=== PATIENT | female | born 1965 | race Caucasian/White ===

== ENCOUNTER → 2023-07-10 16:03 | Outpatient (REF) | payer BC, SELFPAY | LOC: WDC 16:03 | PROVIDERS: ATTENDING PHYSICIAN Obstetrics & Gynecology; FAMILY PHYSICIAN Physician Assistant Medical | DX: Z12.31 Encounter for screening mammogram for malignant neoplasm of breast (principal) | CPT/HCPCS: 77063; 77067 ==

== ENCOUNTER → 2024-01-06 07:23 | Outpatient (REF) | payer BC, SELFPAY ==
[2024-01-06 08:14] LABS: % Basophils 0.9 % (0-2); % Eosinophils 11.1 % (0-6); % Immature Granulocytes 0.2 % (0-0.5); % Monocytes 5.8 % (1.7-9.3); Absolute Basophils 0.1 10^3/uL (0-0.2); Absolute Eosinophils 0.7 10^3/uL (0-0.7); Absolute Lymphocytes 2.5 10^3/uL (1.2-3.4); Absolute Monocytes 0.4 10^3/uL (0.1-0.6); Absolute Neutrophils 2.9 10^3/uL (1.4-6.5); Hematocrit 39.4 % (37.0-47.0); Hemoglobin 13.4 g/dL (12.0-16.0); Mean Corpuscular Hgb 31.5 pg (27.0-31.0); Mean Corpuscular Volume 92.7 fL (81.0-99.0); Nucleated Red Blood Cells % 0 %; Platelet Count 179 10^3/uL (130-400); Red Blood Cell Count 4.25 10^6/uL (4.20-5.40); Red Cell Dist. Width 12.7 % (11.5-14.5); White Blood Cell Count 6.5 10^3/uL (4.8-10.8)
[2024-01-06 09:06] LABS: TSH 4.27 uIU/ml (0.47-4.68)
[2024-01-06 09:30] LABS: ALT (SGPT) 50 U/L (0-35); AST (SGOT) 47 U/L (14-36); Albumin 4.6 g/dl (3.5-5.0); Alkaline Phosphatase 69 U/L (38-126); Blood Urea Nitrogen 15 mg/dl (7-17); Calcium 9.8 mg/dl (8.4-10.2); Carbon Dioxide 21 mmol/L (22-30); Chloride 105 mmol/L (98-107); Glucose 84 mg/dl (70-99); HDL Cholesterol 90 mg/dl; LDL Cholesterol, Calculated 98 mg/dl; Potassium 4.7 mmol/L (3.5-5.1); Sodium 142 mmol/L (135-145); Total Bilirubin 1.2 mg/dl (0.2-1.3); Total Cholesterol 205 mg/dl (50-199); Total Protein 7.2 g/dl (6.3-8.2); Triglyceride 87 mg/dl (10-149); Very Low Density Lipoprotein 17 mg/dl (0-30); eGFR > 60.00
== END ==
LOC: REG 07:23
PROVIDERS: ATTENDING PHYSICIAN Physician Assistant Medical
DX: Z00.00 Encounter for general adult medical examination without abnormal findings (principal); R79.89 Other specified abnormal findings of blood chemistry; R74.8 Abnormal levels of other serum enzymes
CPT/HCPCS: 36415; 80053; 80061; 82306; 84443; 85025

== ENCOUNTER → 2024-01-09 17:11 | Outpatient (REF) | payer BC, SELFPAY ==
[2024-01-09 18:58] LABS: Hepatitis B Core Ab, Total Negative (Negative); Hepatitis C Antibody Negative (Negative)
[2024-01-09 19:37] LABS: Hepatitis A Antibody, Total Positive (Negative)
[2024-01-12 03:03] LABS: Alpha-1-Antitrypsin 147 mg/dL (90-200)
== END ==
LOC: CLAB 17:11
PROVIDERS: ATTENDING PHYSICIAN Physician Assistant Medical
DX: R74.8 Abnormal levels of other serum enzymes (principal)
CPT/HCPCS: 36415; 82103; 82728; 86256; 86704; 86708; 86803

== ENCOUNTER → 2024-01-31 06:57 | Outpatient (REF) | payer BC, SELFPAY | LOC: RAD 06:57 | PROVIDERS: ATTENDING PHYSICIAN Physician Assistant Medical | DX: R74.8 Abnormal levels of other serum enzymes (principal) | CPT/HCPCS: 76700 ==

== ENCOUNTER → 2024-02-03 11:47 | Outpatient (REF) | payer BC, SELFPAY | LOC: CLAB 11:47 | PROVIDERS: ATTENDING PHYSICIAN Physician Assistant Medical | DX: R35.0 Frequency of micturition (principal) | CPT/HCPCS: 87086 ==

== ENCOUNTER → 2025-01-18 06:27 | Outpatient (REF) | payer BC, SELFPAY ==
[2025-01-18 07:41] LABS: Hematocrit 40.9 % (37.0-47.0); Hemoglobin 13.5 g/dL (12.0-16.0); Mean Corp Hgb Conc. 33.0 g/dL (33.0-37.0); Mean Corpuscular Volume 92.5 fL (81.0-99.0); Nucleated Red Blood Cells % 0 %; Platelet Count 285 10^3/uL (130-400); Red Cell Dist. Width 12.9 % (11.5-14.5)
[2025-01-18 08:04] LABS: ALT (SGPT) 34 U/L (0-35); AST (SGOT) 30 U/L (14-36); Albumin 4.3 g/dl (3.5-5.0); Alkaline Phosphatase 65 U/L (38-126); Blood Urea Nitrogen 10 mg/dl (7-17); Calcium 9.3 mg/dl (8.4-10.2); Carbon Dioxide 28 mmol/L (22-30); Chloride 107 mmol/L (98-107); Glucose 83 mg/dl (70-99); HDL Cholesterol 75 mg/dl; LDL Cholesterol, Calculated 94 mg/dl; Potassium 4.2 mmol/L (3.5-5.1); Sodium 140 mmol/L (135-145); Total Protein 7.3 g/dl (6.3-8.2); Very Low Density Lipoprotein 20 mg/dl (0-30); eGFR > 60.00
[2025-01-18 09:44] LABS: Vitamin D, 25-OH*** 42.6 ng/mL (30-80)
[2025-01-18 09:57] LABS: TSH 4.55 uIU/ml (0.47-4.68)
== END ==
LOC: REG 06:27
PROVIDERS: ATTENDING PHYSICIAN Physician Assistant Medical
DX: Z00.00 Encounter for general adult medical examination without abnormal findings (principal); R79.89 Other specified abnormal findings of blood chemistry; R74.8 Abnormal levels of other serum enzymes
CPT/HCPCS: 36415; 80053; 80061; 82306; 84443; 85025

== ENCOUNTER 2025-03-01 07:30 | Emergency (ER) | payer BC, SELFPAY ==
[2025-03-01 07:36] VITALS: BP 131/66
--- NOTE | 2025-03-01 09:08 | ED.MUSCINJ ---
HPI-Injury
General
Chief Complaint: Musculo-Skeletal Complaint
Source: patient
Exam Limitations: none
Time Seen by Provider: 03/01/25 08:22
Nursing documentation reviewed up to this point in time: agreed with
History of Present Illness-Injury
Initial Injury comments:
59-year-old female with no significant past medical history states she was working out at home this morning doing sideways lunges tripped on a rug when she felt a sudden pain in her left knee and now has pain with weightbearing and certain movements
of the knee.
Past History
Past History
ED Past Medical History: None
ED Past Surgical History: Other ([place] teeth)
Social History
Tobacco: Non-smoker
Alcohol: Occasional
Personal:
Living: with family
Employment: Employed
Review of Systems
Review of Systems
Allergies reviewed?: Yes
All Other Systems: ROS reviewed and negative except as documented in HPI and ROS
Phy Exam
Physical Exam
Physical Exam:
PHYSICAL EXAMINATION:
General: no apparent distress, not acutely ill
Neuro: alert and oriented.
Psychiatric: well kept. interactive and cooperative
Musculoskeletal: Moves with ease. Left knee: Mildly tender along medial aspect. No significant swelling. Can straighten the knee with ease, can flex the knee almost fully but not quite. Distal neurovascular intact. No
joint instability.
Skin: Warm, pink.
Injury Course
Orders/Labs/Results
Orders:
Orders
03/01/25 07:40
Knee, Left 4 or More Views [CR Knee - Left 4 Or More View*] Urgent
Comment:
Reason For Exam: left knee pain, twisted knee working out
03/01/25 08:56
Knee Immobilizer Left-Treatmen ONCE
03/01/25 09:07
Crutches-Treatment ONCE
MDM/Problems Addressed
Differential Diagnosis Includes:
Sprain knee, torn meniscus, medial collateral ligament strain
MDM/Problems Addressed:
59-year-old female with no significant past medical history states she was working out at home this morning doing sideways lunges tripped on a rug when she felt a sudden pain in her left knee and now has pain with weightbearing and certain movements
of the knee.
Knee x-ray initially read by this examiner: Small suprapatellar effusion, no bony abnormality.
Knee immobilizer applied and patient up and ambulating with significant limp and is requesting crutches.
Referred to orthopedics for follow-up
*Pulse Oximetry
SaO2: 98
Oxygen Mode of Delivery: Room air
Patient hypoxic: not evaluated
*Critical Care Note
Total Time (30-74mins, 75-104mins- exclusive of procedures): Not Applicable
ED Attending Note
-
Portions of this chart may have been created with voice recognition software.� Occasional wrong word or��sound alike� substitutions may have occurred due to the inherent limitations of voice recognition software.
Discharge Plan
Departure
Patient Disposition: Home (Routine Discharge)
Date of Disposition: 03/01/25
Time of Disposition: 09:12
Patient with high blood pressure during this ER visit?: No
Condition: Good
Discharge Problem:
Soft tissue injury of left knee
Instructions: How to Use Crutches, Knee Sprain (DC), Using Cold for Pain
Referrals:
Madhu Schneider MD [Active, Orthopedics] - As needed
Stand Alone Forms: Return to Work
Activity Restrictions/Additional Instructions:
As we discussed, wear the knee immobilizer at all times when up and around, for the next 2 days then you may remove it daily to see if you can walk comfortably without it. Test your knee daily and if it is stable and you can walk comfortably then
you can leave the knee immobilizer off.
Use the crutches with gradually increasing weight bearing as comfort permits.
Rest for the next 2 days with the leg elevated, cool compresses 20 minutes off and on, Tylenol or ibuprofen as needed for pain
If your knee is not a lot better in 5 days or not 100% better in 2 weeks follow-up with your orthopedic doctor.
Interventions
Interventions:
*Risk Screen - Suicide Last Done: 03/01/25 07:36
*General Assessment Last Done: 03/01/25 07:36
*Neglect/Abuse Screening Last Done: 03/01/25 07:36
*ED- Fall Risk Assessment Last Done: 03/01/25 08:28
*ED COVID-19 Vaccine History Last Done: 03/01/25 08:28
*ED Influenza Vaccine History Last Done: 03/01/25 08:28
*Nursing Disposition Last Done: 03/01/25 09:31
ED-Musculoskeletal Assessment Last Done: 03/01/25 08:28
Discharge Date and Time
Discharge Date/Time: 03/01/25 09:32
Print Language: BARBADIAN
== END 2025-03-01 09:32 | disposition home or self-care (01) ==
LOC: EMR 07:30
PROVIDERS: EMERGENCY PHYSICIAN Emergency Medicine; FAMILY PHYSICIAN Physician Assistant Medical
DX: S89.92XA Unspecified injury of left lower leg, initial encounter (principal); X50.1XXA Overexertion from prolonged static or awkward postures, initial encounter
CPT/HCPCS: 99283; 73564

== ENCOUNTER → 2025-03-18 06:47 | Outpatient (REF) | payer BC, SELFPAY | LOC: PAVMRI 06:47 | PROVIDERS: ATTENDING PHYSICIAN Orthopaedic Surgery; FAMILY PHYSICIAN Physician Assistant Medical | DX: M25.562 Pain in left knee (principal) | CPT/HCPCS: 73721 ==

== ENCOUNTER 2025-04-06 06:19 | Outpatient (RCR) | payer BC, SELFPAY | END 2025-04-06 23:59 | disposition home or self-care (01) | LOC: RPT 06:19 | PROVIDERS: ATTENDING PHYSICIAN Orthopaedic Surgery; FAMILY PHYSICIAN Physician Assistant Medical | DX: S83.512D Sprain of anterior cruciate ligament of left knee, subsequent encounter (principal); Z73.6 Limitation of activities due to disability; R26.89 Other abnormalities of gait and mobility; M62.81 Muscle weakness (generalized); X50.1XXD Overexertion from prolonged static or awkward postures, subsequent encounter | CPT/HCPCS: 97110; 97161; 97530 ==